=== PATIENT | female | born 1985 | race Caucasian/White ===

== ENCOUNTER → 2018-04-18 08:36 | Outpatient (CLI) | payer OTHER, SELFPAY ==
[2018-04-19 17:14] LABS: Strep Grp B PCR NEG for Grp B Strep
== END ==
PROVIDERS: Visit Provider Specialist
DX: Z34.03 Encounter for supervision of normal first pregnancy, third trimester (principal); Z3A.36 36 weeks gestation of pregnancy
CPT/HCPCS: 87653

== ENCOUNTER 2018-05-17 17:57 | Inpatient (IN) | payer OTHER, SELFPAY ==
[2018-05-17] MEDS: miSOPROStol 25 MCG TABLET VAG (20:31)
[2018-05-17 20:36] LABS: Add Manual Diff / Slide Review NO; Basophils Percent Auto 0.7 % (0-2); Eosinophils Percent Auto 0.5 % (2-4); Hematocrit 37.9 % (36-46); Hemoglobin 13.2 g/dL (12.0-16.0); Lymphocytes Percent Auto 21.3 % (25-40); Mean Corpuscular HGB Conc 34.8 % (30-36); Mean Corpuscular Hemoglobin 30.4 PG (26-34); Mean Corpuscular Volume 87.2 fL (80-100); Monocytes Percent Auto 4.9 % (3-14); Neutrophils Absolute Auto 8900 /uL (3000-5900); Neutrophils Percent Auto 72.6 % (50-75); Platelet Count 166 X10^3/uL (150-400); Red Blood Cell Count 4.34 X10^6/uL (4.0-5.2); Red Cell Distribution Width 14.3 % (11.6-14.8); White Blood Cell Count 12.3 X10^3/uL (4.5-11.0)
[2018-05-17 21:03] VITALS: BP 130/79
[2018-05-18] VITALS (7 sets, daily range): BP systolic 110–134; BP diastolic 68–83; PULSE 76–98; RESP 12–22; TEMP 37.6–38.1; O2SAT 99–100
[2018-05-18] MEDS: ONDANSETRON 4 MG/2 ML INJ IV (08:30)
[2018-05-18] MEDS: fentaNYL 100 MCG/2 ML INJ IV (08:30)
[2018-05-18] MEDS: OXYTOCIN PREMIX 30 UNIT/500 ML PLAST..BAG IV (08:41)
--- NOTE | 2018-05-18 09:25 | P.HPOB_ITS ---
OB HPI Date/Time Date of admission: 05/17/18 Date Patient Seen: 05/18/18 Time Patient Seen: 09:19 History of Present Condition Chief complaint: EVAL OF LABOR : 1 Para: 0 Estimated Date of Delivery: 05/12/18 Estimated Gestational Age (weeks): 40 Narrative: Charley Aguilar is a 32 year old female at 40 6/7 weeks by dates admitted for postdates induction. She has no signs or symptoms of preeclampsia. She has not had leaking of fluid. She denies any fevers. Indications Indication for induction OB: post dates History of Present care: good care Dating criteria: LMP confirmed by 1st trimester US Ultrasounds: normal mid trimester US Obstetrical complications: none Medical complications: none Preadmission Labs Blood type: O (+) positive -: Antibody screen: negative, GBS status: negative, HBsAG: negative, HIV: negative and RPR/VDLR: negative -: Rubella: immune and Varicella: immune Sequential screen: Normal 1 hr GTT: 127 Evaluation Evaluation Baseline heart rate: 115 Variability: Moderate (11-25) monitor accelerations: Present monitor decelerations: Absent Contraction Frequency (minutes): 3 Uterine Contraction Intensity: Moderate Category of Tracing: I Cervical dilation (cm): 2 Cervical effacement (%): 80 station: -3 Laboratory results: Laboratory Tests 05/17/18 05/17/18 20:15 20:15 WBC 12.3 H RBC 4.34 Hgb 13.2 Hct 37.9 MCV 87.2 MCH 30.4 MCHC 34.8 RDW 14.3 Plt Count 166 Neut % (Auto) 72.6 Lymph % (Auto) 21.3 L [place] % (Auto) 4.9 Eos % (Auto) 0.5 L Baso % (Auto) 0.7 Neut # (Auto) 8900 H Blood Type O Positive Antibody Screen Negative PFSH Social History Smoking Status: Former smoker Meds Home Medications Medication Instructions Recorded Confirmed Type vit no.[id number] 1 tab PO DAILY 05/17/18 05/17/18 History [ Vitamin] Allergies Allergy/AdvReac Type Severity Reaction Status Date / Time No Known Drug Allergies Allergy Verified 05/17/18 21:06 Review of Systems Review of Systems All systems reviewed & are unremarkable except as noted in HPI and below Exam Vital Signs (past 8 hours): Blood pressure 128/69, pulse of 53, temperature 35.9? Narrative Exam Narrative: HEENT exam within normal limits. Heart is regular rate and rhythm no S3-S4 or murmurs. No thyromegaly. Abdomen is gravid and nontender. Extremities without edema and nontender. Normal DTRs. Manual OB Exam: dilated 2, effaced 75% and station high Uterus Location (Fundal Height): 39 Presentation: vertex Estimated Weight (lbs): 8 Objective Labs Result Diagrams: 05/17/18 20:15 Labs: Laboratory Results - last 24 hr 05/17/18 05/17/18 20:15 20:15 WBC 12.3 H RBC 4.34 Hgb 13.2 Hct 37.9 MCV 87.2 MCH 30.4 MCHC 34.8 RDW 14.3 Plt Count 166 Neut % (Auto) 72.6 Lymph % (Auto) 21.3 L [place] % (Auto) 4.9 Eos % (Auto) 0.5 L Baso % (Auto) 0.7 Neut # (Auto) 8900 H Blood Type O Positive Antibody Screen Negative Assessment and Plan (1) Post term over 40 weeks: Current visit: Yes Status: Acute Plan: Plan: Patient received prostaglandins for non favorable cervix. She is now maxime and has cervical change. Will begin Pitocin augmentation of labor. Patient is requesting epidural catheter for pain control.
[2018-05-18] MEDS: LACTATED RINGERS 1,000 ML 125 ML IV ×2 (09:55→12:52)
--- NOTE | 2018-05-18 18:56 | PM.PREOP ---
Pre-operative Note Interval Note Pre-op Check: Yes History & Physical exam performed today by Physician Changes: Yes H&P completed within 30 days and has changed as indicated here:: Second-stage arrest
--- NOTE | 2018-05-18 18:57 | PM.OBPNLAB ---
Date/Time Date Patient Seen: 05/18/18 Time Patient Seen: 18:57 Pain Control Pain control: epidural Pelvic Exam Dilation (cm): 10 Effacement (%): 100 station: -1 Amniotic membrane status: Ruptured Contractions Pitocin rate (mU/min): 12 Contraction frequency (min): 3 Contraction duration (min): 90 Contraction pattern: Regular Contraction intensity: Moderate Status status: Category ll Heart Rate Baseline: 115 Monitor Accelerations: Present Monitor Decelerations: Variable Monitor Variability: Moderate Comments: Patient was getting exhausted so decision was made to try a vacuum extraction. Risks of vacuum were discussed with the patient of hematoma of the baby's head possible bleed behind the baby's skull. The vacuum was placed for 1 contraction with minimal descent. Patient requested just proceeding with section rather than repeat attempt at vacuum. Consent for was reviewed with the patient risks were discussed, questions answered. consent form was signed. Assessment and Plan Plan:
[2018-05-18] MEDS: CEFAZOLIN 2 GM/100 ML FROZ.PIGGY IV (19:53)
--- NOTE | 2018-05-18 20:10 | SUR.OPER ---
Supine on Padded OR bed, head on pillow, safety belt at thigh, arms secured on padded arm boards at <90 degrees abduction. Bump under right buttock. Legs uncrossed with pillow under knees, gel pad to heels, tape over blanket to lower legs.
[2018-05-18] MEDS: CARBOPROST 250 MCG/ML AMPUL IM (20:26)
--- NOTE | 2018-05-18 20:44 | SUR.OPER ---
Live male at 2011. APGARS 6/9
[2018-05-18 20:58] LABS: pH Cord Arterial Blood 7.231 (7.18-7.38)
[2018-05-18 20:59] LABS: Base Excess Cord Arterial Bld -6 (-9.0-1.8); CO2 Cord Arterial Blood 52.3 (33-66); HCO3 Cord Arterial Blood 21.9; Oxygen Sat Cord Arterial Blood 6; PO2 Cord Arterial Blood 8 (6-30)
[2018-05-18 21:00] LABS: Base Excess Cord Venous Blood -6 (-7.7-1.9); Cord Venous Blood PCO2 36.6 (27-49); Cord Venous Blood PO2 25 (17-49); Cord Venous Blood pH 7.344 (7.25-7.45); HCO3 Cord Venous Blood 19.9
[2018-05-18 21:01] LABS: O2 Saturation Cord Venous Bld 43
--- NOTE | 2018-05-18 21:09 | P.OP_ITS ---
Operative Date/Time/Diagnoses Date of procedure: 05/18/18 Time of procedure: 21:01 Pre-op diagnosis: Second-stage arrest at 40-6/7 weeks by dates Post-op diagnosis: same Procedure & Clinicians Procedure: primary low-transverse section Same procedure as scheduled: Yes Surgeon: Stephania Wei Click Yes if Unassisted: Yes Anesthesia Type: Epidural Operative Notes Findings: normal tubes ovaries in uterus, viable male with Apgars of 6 and 9. weight 7 lb 11 oz. venous cord gas 7.344 pH, pCO2 36.6 PO2 25 base excess -6, arterial gas 7.23pH, pCO2 52, PO2 8 base excess -6 Closure Type: primary Specimen(s): none sent Applied: catheter Estimated Blood Loss (mL): 500 Blood products transfused: none Procedure in detail: The patient was brought to the operating room where she had her epidural dosed for anesthesia. She was placed in a supine position with a left lateral tilt. A Garcia catheter was in place. Pulsatile stockings were placed and functional throughout the case. 2gm of Ancef were given IV prior to the incision. Warming was in place. The patient was prepped and draped in usual sterile fashion. A low transverse incision was made with a scalpel and the incision was carried down to the fascial layer which was incised transversely with scissors. The midline attachments are superiorly and inferiorly. Some bleeding was controlled Bovie. The rectus muscles were in the midline and the peritoneal incision was made with no damage to internal structures. The peritoneum was incised and superiorly and inferiorly. Bladder blade was placed and a bladder flap was developed and the bladder held away from the lower uterine segment. An incision was made in the uterus with the scalpel and the incision was extended with stretching. attempt to deliver the head was unsuccessful until the head was pushed up vaginal. The head was delivered. The infant was bulb suctioned for clear fluid and handed off to the warmer. Cord pH and cord bloods were taken. The placenta delivered spontaneously with traction. The uterus was cleaned with clean laps. The uterine incision was closed in 2 layers of 0 chromic suture the first a running locking layer the second an imbricating layer. The bladder peritoneum was repaired with 2-0 Polysorb suture. The gutters were cleaned of any remaining fluids and ovaries and tubes were observed to be normal. Adequate hemostasis was normal. The perineum was closed with 2-0 Polysorb suture. The fascia layer was closed with 0 Polysorb suture with 2 stitches. The incision was irrigated and adequate hemostasis noted. The incision was closed with interrupted 3-0 Polysorb sutures and then a subcuticular stitch of 4 -0 Polysorb suture. Steri-Strips were placed. The uterus was massaged to remove any clots. The patient went to recovery room in good condition. The baby went to the nursery. Counts of instruments and sponges were correct. Complications: none Condition: stable Disposition: PACU Plan for aftercare: routine post section
--- NOTE | 2018-05-18 21:45 | SUR.PHASEI ---
Prior to transfer, Dr Sumner pulled out Epidural cath voicing that tip was seen intact on removal.
[2018-05-18] MEDS: LACTATED RINGERS 1,000 ML 100 ML IV (22:15)
[2018-05-19] MEDS: KETOROLAC 30 MG/ML VIAL IV ×3 (03:12→18:12)
[2018-05-19 05:03] LABS: Add Manual Diff / Slide Review NO; Basophils Percent Auto 0.4 % (0-2); Eosinophils Percent Auto 0.2 % (2-4); Hematocrit 26.2 % (36-46); Hemoglobin 9.2 g/dL (12.0-16.0); Lymphocytes Percent Auto 14.5 % (25-40); Mean Corpuscular HGB Conc 35.1 % (30-36); Mean Corpuscular Hemoglobin 30.7 PG (26-34); Mean Corpuscular Volume 87.5 fL (80-100); Monocytes Percent Auto 6.8 % (3-14); Neutrophils Absolute Auto 11200 /uL (3000-5900); Neutrophils Percent Auto 78.1 % (50-75); Platelet Count 123 X10^3/uL (150-400); Red Blood Cell Count 2.99 X10^6/uL (4.0-5.2); Red Cell Distribution Width 14.4 % (11.6-14.8); White Blood Cell Count 14.4 X10^3/uL (4.5-11.0)
[2018-05-19] MEDS: DOCUSATE 250 MG CAPSULE PO (08:23)
[2018-05-19] MEDS: LANOLIN OINT 7 GM 1 APPLIC TOP (10:31)
[2018-05-19] MEDS: OXYCODONE/ACETAMINOPHEN 5/325 TABLET 2 TAB PO ×3 (12:17→20:39)
--- NOTE | 2018-05-19 13:18 | PM.OBPN.1 ---
Subjective - OB Patient comments: pain well controlled baby status: doing well feeding status: exclusively breast feeding Narrative: Patient is doing well post section. She is not nauseated and tolerating a regular diet. She is ambulatory. She denies any headaches or scotomata. She denies any extremity pain but mild edema. Date Patient Seen: 05/19/18 Time Patient Seen: 13:18 Exam Vital Signs (past 8 hours): Blood pressure 99/60, pulse is 77, temperature 97.4? Oxygen Delivery Method Room Air Narrative Exam Narrative: Abdomen is soft, nontender. Uterus is firm, at U, appropriately tender. Dressing is clean, dry, and intact. Mild lochia. Extremities with trace edema nontender. Objective Labs Result Diagrams: 05/19/18 04:46 Labs: Laboratory Results - last 24 hr 05/18/18 05/18/18 05/19/18 20:20 20:25 04:46 WBC 14.4 H RBC 2.99 L Hgb 9.2 L Hct 26.2 L MCV 87.5 MCH 30.7 MCHC 35.1 RDW 14.4 Plt Count 123 L Neut % (Auto) 78.1 H Lymph % (Auto) 14.5 L [place] % (Auto) 6.8 Eos % (Auto) 0.2 L Baso % (Auto) 0.4 Neut # (Auto) 94082 H Cord ABG pH 7.231 Cord ABG pCO2 52.3 Cord ABG pO2 8 Cord ABG HCO3 21.9 Cord ABG Base Excess -6 Cord ABG O2 Sat 6 Cord VBG pH 7.344 Cord VBG pCO2 36.6 Cord VBG pO2 25 Cord VBG HCO3 19.9 Cord VBG Base Excess -6 Cord VBG O2 Sat 43 Assessment & Plan (1) Post term over 40 weeks: Status: Acute Current Visit: Yes (2) Delivery by section using transverse incision of lower segment of uterus: Status: Acute Assessment and plan: Normal post section exam. Routine post section care. Current Visit: Yes Plan day: 1 plan OB: routine postop care Time Spent With Patient Total time spent is greater than 50% in coordination of care (as documented) at patient's floor/unit and/or counseling patient: less than 15 minutes
[2018-05-19] MEDS: FERROUS GLUCONATE 324 MG TABLET PO (20:40)
[2018-05-20 00:46] VITALS: TEMP 36.8
[2018-05-20] MEDS: OXYCODONE/ACETAMINOPHEN 5/325 TABLET 2 TAB PO ×3 (00:46→11:37)
[2018-05-20] MEDS: IBUPROFEN 600 MG TABLET PO ×2 (00:48→06:56)
[2018-05-20 05:54] VITALS: TEMP 37.2
[2018-05-20 10:34] VITALS: BP 121/82; PULSE 81; RESP 17; TEMP 36.8
--- NOTE | 2018-05-20 11:21 | P.DS_ITS ---
Discharge Providers Date of admission: 05/17/18 17:57 Consults: 05/18/18 23:23 Consult to Accounts Payable Coordinator Routine Comment: Discharge provider: Stephania Wei MD Summary Date Patient Seen: 05/20/18 Time Patient Seen: 11:16 Hospital Course: Patient was admitted on Labor and delivery for post-dates induction. She received Cytotec followed by Pitocin. She received an epidural catheter for pain control. She had a second-stage arrest with failed attempt at vacuum extraction. She underwent a primary low-transverse section. She did well post . Blood pressure 121/82, pulse of 81, temperature 98.2?. The patient was urinating and ambulating well. She was tolerating regular diet. She had pain and control. No signs or symptoms of preeclampsia. She was passing gas. Mild lochia. Abdomen was soft, nontender. Uterus was firm, at U, appropriately tender. Dressing was clean, dry, and intact. Mild lochia. Extremities with +1 edema, nontender. Peripartum Data Delivery Method: Section Procedures: Primary low-transverse section complications: none Discharge Diagnosis (1) Post term over 40 weeks: Status: Acute (2) Delivery by section using transverse incision of lower segment of uterus: Status: Acute Status at Discharge Functional status at discharge: independent ambulation Overall status at discharge: patient is progressing back to baseline Time Spent with Patient Total time spent providing and/or coordinating discharge services: Less than 30 minutes Objective Labs Result Diagrams: 05/19/18 04:46 Discharge Plan Discharge Plan Patient Disposition: Home Discharge Med Rec/Prescriptions Prescriptions: New oxycodone-acetaminophen 5-325 mg Tablet 2 tab PO Q4HR PRN (Reason: Pain, Severe (7-10)) Qty: 40 RF: 0 ibuprofen 600 mg Tablet 600 mg PO Q6HR PRN (Reason: As Needed For Fever/Mild Pain) Qty: 30 RF: 0 docusate sodium 250 mg Capsule 250 mg PO DAILY Qty: 20 RF: 0 ferrous gluconate 324 mg (38 mg iron) Tablet 324 mg PO BID Qty: 60 RF: 0 Continue vit no.[id number] [ Vitamin] 27 mg iron- 800 mcg Tablet 1 tab PO DAILY RF: 0 Follow up/Referrals: Stephania Wei MD [Physician] - 1 Week Provider Discharge Instructions Diet: Regular Activity: Nothing in vagina for 4 weeks, do not lift anything heavier than the baby Skin/Wound/Dressing Care Report to your healthcare provider any signs of infection, such as:: chills, fever, increased pain and unusual drainage Dressing: Leave dressing on until 1 week postop appointment Discharge Data Attending Provider: Stephania Wei Admit Date/Time: 05/17/18 17:57
[2018-05-20] MEDS: FERROUS GLUCONATE 324 MG TABLET PO (11:36)
[2018-05-20] MEDS: DOCUSATE 250 MG CAPSULE PO (11:36)
== END 2018-05-20 12:30 | disposition home or self-care (01) | DRG 766 ==
PROVIDERS: Admitting Provider Specialist; Visit Provider Specialist
PROC: 10D00Z1 Extraction of Products of Conception, Low, Open Approach (ICD-10-PCS; CPT 59514; principal; 2018-05-18 19:30)
DX: O48.0 Post-term pregnancy (principal); Z3A.40 40 weeks gestation of pregnancy; O62.1 Secondary uterine inertia; Z37.0 Single live birth; O75.81 Maternal exhaustion complicating labor and delivery; O66.5 Attempted application of vacuum extractor and forceps
CPT/HCPCS: 01967; 01968; 36415; 59050; 59200; 59515; 82803; 85025; 86850; 86900; 86901; G0379; J0690; J1885; J2210; J2274; J2405; J2590; J3010